=== PATIENT | female | born 1935 | race Caucasian/White ===

== ENCOUNTER 2018-07-03 08:56 | Day surgery (SDC) | payer OTHER ==
[~2018-07-03] VITALS: Ht 154.9 cm; Wt 81.5 kg
[2018-07-03] VITALS (7 sets, daily range): BP systolic 152–189; BP diastolic 52–69
--- NOTE | 2018-07-03 07:35 | NUR ---
Call placed to [facility] to Clarify if patients TDC order was to exchange or remove order was unclear. [facility] and was informed that the order was to only remove patients existing TDC due to infection. TDC was too deep for staff to safely remove at [facility], and that [facility] MD was to place a TDC at a later date in [facility] at bedside.
[2018-07-03] MEDS ORDERED: LIDOcaine 1% 30ml preserv. free vial SQ STA (09:16)
[2018-07-03] MEDS ORDERED: ASPI-920 PO (09:18)
[2018-07-03] MEDS ORDERED: BUME1TAB4 PO (09:19)
[2018-07-03] MEDS ORDERED: ATOR40TA PO (09:19)
[2018-07-03] MEDS ORDERED: normal saline 1000ml 1,000 ML IV PRN (09:20)
[2018-07-03] MEDS ORDERED: CYA500T PO (09:20)
[2018-07-03] MEDS ORDERED: FAMO40TA73 PO (09:21)
[2018-07-03] MEDS ORDERED: GABA100C PO (09:22)
[2018-07-03] MEDS ORDERED: FOLI1TAB16 PO (09:22)
[2018-07-03] MEDS ORDERED: HYDR-4069 PO (09:23)
[2018-07-03] MEDS ORDERED: INSU100C10 SQ (09:24)
[2018-07-03] MEDS ORDERED: LEVO50TA8 PO (09:40)
[2018-07-03] MEDS ORDERED: METO50TA17 PO (09:41)
[2018-07-03] MEDS ORDERED: PANT-47 PO (09:42)
[2018-07-15] MEDS ORDERED: BALS60OI (13:03)
[2018-07-15] MEDS ORDERED: ACET-2119 PO (13:03)
[2018-07-15] MEDS ORDERED: LACT10SO6 PO (13:03)
[2018-07-15] MEDS ORDERED: POLY17PO10 PO (13:03)
== END 2018-07-03 11:30 ==
LOC: SSTAY O 08:56
PROVIDERS: ATTEND Radiology Diagnostic Radiology
DX: Z49.01 Encounter for fitting and adjustment of extracorporeal dialysis catheter (principal); I12.9 Hypertensive chronic kidney disease with stage 1 through stage 4 chronic kidney disease, or unspecified chronic kidney disease; E11.22 Type 2 diabetes mellitus with diabetic chronic kidney disease; N18.9 Chronic kidney disease, unspecified; R78.81 Bacteremia; E78.5 Hyperlipidemia, unspecified; K21.9 Gastro-esophageal reflux disease without esophagitis; E03.9 Hypothyroidism, unspecified; Z95.0 Presence of cardiac pacemaker; Z79.891 Long term (current) use of opiate analgesic; Z95.5 Presence of coronary angioplasty implant and graft; Z90.49 Acquired absence of other specified parts of digestive tract; Z96.653 Presence of artificial knee joint, bilateral; Z79.4 Long term (current) use of insulin; Z79.82 Long term (current) use of aspirin; Z88.8 Allergy status to other drugs, medicaments and biological substances; Z79.899 Other long term (current) drug therapy; Z98.890 Other specified postprocedural states
CPT/HCPCS: 36589; 87070; 87077; 87186; J3490; J7030; 85610

== ENCOUNTER 2018-08-21 07:24 | Day surgery (SDC) | payer MEDICARE ==
[~2018-08-21] VITALS: Ht 154.9 cm; Wt 81.0 kg
[~2018-08-21 07:24] MED LIST: ACET-2119 PO; ASPI-920 PO; ATOR40TA PO; BALS60OI; CYA500T PO; FAMO40TA73 PO; FOLI1TAB16 PO; GABA100C PO; HYDR-4069 PO; INSU100C10 SQ; LACT10SO6 PO; LEVO50TA8 PO; LIDOcaine 1%/PF 5ML 10 MG/ML VIAL ONE; METO50TA17 PO; PANT-47 PO; POLY17PO10 PO
[2018-08-21] MEDS ORDERED: LIDOcaine 1% 30ml preserv. free vial SQ STA (07:25)
[2018-08-21 08:00] VITALS: BP 144/78
[2018-08-21 08:30] VITALS: BP 148/78
== END 2018-08-21 08:45 | disposition home or self-care (01) ==
LOC: SSTAY O 07:24
PROVIDERS: ATTEND Radiology Diagnostic Radiology
DX: Z49.01 Encounter for fitting and adjustment of extracorporeal dialysis catheter (principal); I10 Essential (primary) hypertension; E03.9 Hypothyroidism, unspecified; E11.40 Type 2 diabetes mellitus with diabetic neuropathy, unspecified; Z79.899 Other long term (current) drug therapy
CPT/HCPCS: 36589; J2001; J3490